=== PATIENT | male | born 1955 | race Caucasian/White ===

== ENCOUNTER → 2017-07-28 | Outpatient (CLI) | payer OTHER ==
--- NOTE | 2017-07-29 16:46 | MR ---
EXAMINATION TYPE: MR cervical spine wo con DATE OF EXAM: 07/28/2017 COMPARISON: NONE HISTORY: 61-year-old male Neck pain, Left arm numbness/tingling and weakness TECHNIQUE: Multiplanar, multisequence images of the cervical spine were acquired. Findings: No craniocervical junction abnormality, predental space widening, or prevertebral soft tissue swellin g. Moderate disc degenerative change throughout the cervical spine characterized by disc desiccation and disc space narrowing and disc osteophyte complex formation, greatest at C5-C7 levels. Hypertrophic facet and uncovertebral joint arthropathy throughout. There is degenerative grade 1 ante rolisthesis at C7-T1. Scattered ligamentum flavum thickening is also present. Of note, there is congenital spinal canal narrowing with AP canal dimension of 1.1 cm. At C2-C3, there is left greater than right facet arthropathy. No significant canal or foraminal steno sis. At C3-C4, uncovertebral joint and facet degenerative change. Changes result in mild to moderate right neuroforaminal stenosis and mild spinal canal stenosis with left paracentral disc osteophyte complex abutting and minimally indenting the ventral cord. At C4-C5, there is broad-based disc ossified complex with hypertrophic facet and uncovertebral joint degenerative change. Changes result in moderate to severe left and mild right neuroforaminal stenosis . There is also a moderate overall spinal canal stenosis with AP canal dimension of 7 mm. Abutment of both the dorsal and ventral cord with slight cord flattening. At C5-C6, there is diffuse disc osteophyte complex eccentric towards the left with uncovertebral join t and facet degenerative change and ligamentum flavum thickening. Changes result in severe bilateral neuroforaminal stenosis. There is a moderate spinal canal stenosis with a flattening of both the dors al and ventral cord. At C6/C7, similar changes are present with moderate to severe spinal canal stenosis with AP canal dim ension of 4.5 mm. There is impingement of the cord but no discrete myelopathic cord signal change. Ch anges result in moderate to severe bilateral neural foraminal stenosis. At C7-T1, hypertrophic facet arthropathy with grade 1 anterolisthesis. Mild congenital spinal canal n arrowing. Changes result in mild bilateral neuroforaminal stenosis. At T1-T2, there is a broad-based disc bulge with superimposed left paracentral protrusion. This cause s a moderate left neuroforaminal stenosis and abuts and minimally indents the ventral cord. No alex canal compromise or cord compression. No prevertebral or paravertebral soft tissue abnormality seen. IMPRESSION: 1. Moderate degenerative disc disease particularly from C5 through C7 levels. There is corresponding ligamentum flavum thickening and facet/uncovertebral joint arthropathy. 2. These changes are superimposed on a congenital spinal canal stenosis. 3. Changes result in overall moderate to severe spinal canal stenosis at C6/C7 with AP canal dimensio n of 4.5 mm. There is mild cord impingement but no myelopathic cord signal change. Moderate to severe bilateral neural foraminal stenosis. 4. Moderate spinal canal stenoses at C4-C5 and C5-C6 with abutment and slight flattening of both the dorsal and ventral cord. Again, no myelopathic cord signal change. 5. Moderate to severe left neural foraminal stenosis at C4-C5, on both sides at C5-C6, and on both si brinda at C6-C7. 6. Degenerative grade 1 anterolisthesis at C7-T1.
== END | disposition home or self-care (01) ==
LOC: RADMRIMAIN 13:06
PROVIDERS: ATTEND Physical Medicine & Rehabilitation
DX: M48.02 Spinal stenosis, cervical region (principal); M99.71 Connective tissue and disc stenosis of intervertebral foramina of cervical region; M50.122 Cervical disc disorder at C5-C6 level with radiculopathy; M43.13 Spondylolisthesis, cervicothoracic region; M46.92 Unspecified inflammatory spondylopathy, cervical region; M24.28 Disorder of ligament, vertebrae
CPT/HCPCS: 72141

== ENCOUNTER → 2017-09-06 | Outpatient (CLI) | payer OTHER ==
[2017-09-06 12:05] LABS: Basophils % (A) 1 %; Eosinophils # (A) 0.2 k/uL (0-0.7); Eosinophils % (A) 2 %; HCT 47.4 % (39.0-53.0); HGB 15.4 gm/dL (13.0-17.5); Lymphocytes # (A) 2.1 k/uL (1.0-4.8); Lymphocytes % (A) 25 %; MCH 31.6 pg (25.0-35.0); MCHC 32.5 g/dL (31.0-37.0); MCV 97.3 fL (80.0-100.0); Mean Platelet Volume 7.1; Monocytes # (A) 0.5 k/uL (0-1.0); Monocytes % (A) 6 %; Neutrophils # (A) 5.5 k/uL (1.3-7.7); Neutrophils % (A) 65 %; Platelet Count 235 k/uL (150-450); RBC 4.88 m/uL (4.30-5.90); RDW 13.2 % (11.5-15.5); WBC 8.5 k/uL (3.8-10.6)
[2017-09-06 12:14] LABS: Appearance,Urine Clear (Clear); Bilirubin,Urine Negative (Negative); Blood,Urine Negative (Negative); Color,Urine Light Yellow; Glucose,Urine (UA) Negative (Negative); Ketones,Urine Negative (Negative); Leukocyte Esterase,Urine Negative (Negative); Nitrite,Urine Negative (Negative); Protein,Urine Negative (Negative); Specific Gravity,Urine 1.004 (1.001-1.035); Urobilinogen,Urine <2.0 mg/dL (<2.0)
[2017-09-06 12:25] LABS: Anion Gap 5 mmol/L; Blood Urea Nitrogen 21 mg/dL (9-20); Calcium 9.9 mg/dL (8.4-10.2); Carbon Dioxide 34 mmol/L (22-30); Chloride 99 mmol/L (98-107); Glucose 91 mg/dL (74-99); Potassium 5.5 mmol/L (3.5-5.1); Sodium 138 mmol/L (137-145)
[2017-09-06 13:03] LABS: Partial Thromboplastin Time 23.4 sec (22.0-30.0); Prothrombin Time 9.6 sec (9.0-12.0)
--- NOTE | 2017-09-06 13:14 | XR ---
EXAMINATION TYPE: XR chest 2V DATE OF EXAM: 09/06/2017 COMPARISON: 12/06/2012 INDICATION: Presurgical evaluation TECHNIQUE: Frontal and lateral views of the chest are obtained. FINDINGS: The heart size is normal. The pulmonary vasculature is normal. The lungs are clear. IMPRESSION: 1. No acute pulmonary process.
== END | disposition home or self-care (01) ==
LOC: LABPAT 10:57
PROVIDERS: ATTEND Orthopaedic Surgery Orthopaedic Surgery of the Spine
DX: Z01.818 Encounter for other preprocedural examination (principal); Z01.812 Encounter for preprocedural laboratory examination; M48.02 Spinal stenosis, cervical region
CPT/HCPCS: 71046; 80048; 81003; 85025; 85610; 85730; 93005

== ENCOUNTER 2017-09-12 11:41 | Inpatient (IN) | payer OTHER ==
[2017-09-06 16:43] VITALS: BMI 30.1
[~2017-09-12 11:41] MED LIST: BACITRACIN 50,000 UNIT, POLYMYXIN B 500,000 UNIT in SODIUM CHLORIDE 0.9% IRRIGATIO 1,00... IRRIGATION ONE; ceFAZolin IN SWFI 2 GM/20 ML SYRINGE IVP ONE
[2017-09-12 12:38] VITALS: RESP 16
[2017-09-12] MEDS ORDERED: LIDOCAINE 1% 20 ML VIAL (10MG/ML) FOR IV START INTRADERMA ONE (12:52)
[2017-09-12] MEDS ORDERED: LACTATED RINGERS 1,000 ML IV ONE (12:54)
[2017-09-12] MEDS ORDERED: ONDANSETRON 4 MG/2 ML VIAL IVP ONE (12:54)
[2017-09-12] MEDS ORDERED: PHENYLEPHRINE-0.9% NACL SYG 1 MG/10 ML SYRINGE ONE (14:20)
[2017-09-12] MEDS ORDERED: MIDAZOLAM 2 MG/2 ML VIAL ONE (14:20)
[2017-09-12] MEDS ORDERED: ePHEDrine SULFATE/0.9% NACL/PF 50 MG/5 ML SYRINGE IV ONE (14:20)
[2017-09-12] MEDS ORDERED: ROCURONIUM BROMIDE 10 MG/ML 10 ML VIAL IV ONE (14:20)
[2017-09-12] MEDS ORDERED: SUCCINYLCHOLINE CHLORIDE 100 MG/5 ML SYR IV ONE (14:20)
[2017-09-12] MEDS ORDERED: fentaNYL (PF) 50 MCG/ML 2 ML AMP ONE (14:20)
[2017-09-12] MEDS ORDERED: LIDOCAINE 1% INJ 10MG/ML (20 ML MDV) ONE (14:20)
[2017-09-12] MEDS ORDERED: PROPOFOL 10 MG/ML 20 ML VIAL IV ONE (14:20)
[2017-09-12] MEDS ORDERED: HYDROmorphone (PF) 1 MG/ML ONE (14:20)
[2017-09-12] MEDS ORDERED: GELATIN SPONGE,ABSORB (LARGE) 1 EACH SPONGE MISCELLANE ONE (14:56)
[2017-09-12] MEDS ORDERED: THROMBIN (BOVINE) 5,000 UNIT VIAL TOPICAL ONE (14:56)
[2017-09-12] MEDS ORDERED: BUPIVACAINE (PF) 0.25% 30 ML VIAL SQ ONE (14:57)
--- NOTE | 2017-09-12 16:51 | XR ---
EXAMINATION TYPE: XR cervical spine 1V DATE OF EXAM: 09/12/2017 COMPARISON: Cervical spine x-ray earlier. HISTORY: Neck surgery. TECHNIQUE: Single crosstable lateral view of cervical spine is obtained intraoperatively. FINDINGS: . There is now anterior fusion plate from C4 through C7 level. There is artificial disc mat erial C4-C5 and C5-C6 level. Soft tissue obscures visualization of the C6-C7 level as well as C6 and C7 screws. Alignment is satisfactory and stable. Endotracheal tube is redemonstrated. IMPRESSION: Postsurgical changes as above.
[2017-09-12] MEDS ORDERED: MAGNESIUM HYDROXIDE 2,400 MG/10 ML CUP PO PRN (16:55)
[2017-09-12] MEDS ORDERED: HYDROmorphone 2 MG/ML 1 ML SYRINGE IVP PRN (16:55)
[2017-09-12] MEDS ORDERED: HYDROcodone/APAP 5-325MG 1 EACH TAB PO PRN (16:56)
[2017-09-12] MEDS ORDERED: FAMOTIDINE 20 MG TAB PO PRN (16:59)
[2017-09-12] MEDS ORDERED: SODIUM CHLORIDE 0.9% 1,000 ML IV SCH (17:00)
--- NOTE | 2017-09-12 17:04 | P.OP ---
Date of Procedure: 09/12/17 Preoperative Diagnosis: Severe cervical stenosis C4 5 C5 6 C6 7, degenerative disc disease C4 5 C5 6 C6 7, upper extremity radiculopathy, Postoperative Diagnosis: Same Anesthesia: GETA Pathology: none sent Condition: stable Disposition: PACU Description of Procedure: BRIEF OPERATIVE NOTE Preoperative Diagnosis: Severe cervical stenosis C4 5 C5 6 C6 7, herniated disc C4 5 C5 6 C6 7, degenerative disc disease C4 5 C5 6 C6 7, upper extremity neuropathy Postoperative Diagnosis: Same Procedure: Anterior cervical decompression with discectomy and fusion C4 5 C5 6 C6 7 Placement of interbody graft C4 5 C5 6 C6 7 Application of anterior cervical plate C4 5 6 and 7 Surgeon: Dr. Kelly Geospatial Extractor Analysis: Janusz Horner is present throughout the entire the case persistence during positioning, dissection, exposure, visualization, and all crucial elements of the case as well as closure. Anesthesia: General anesthesia per Dr. Griffin Estimated blood loss: Approximately 50 mL Complications: None apparent Components implanted: K2M Fenton anterior cervical plate system with screws and Vikos allograft bone graft and 1 mL of DBX bone putty Disposition: To recovery room in good stable condition. OPERATIVE INDICATIONS The patient has had long-standing issues in their neck and upper extremities. He was found to have severe cervical stenosis at C4 5 C5 6 and C6 7 with disc herniation and these findings correlated well with his neck and upper extremity pain and radiculopathy. The patient has been through conservative treatment. He is not having any significant benefit despite aggressive conservative treatment We discussed various treatment options including surgery, and the patient wishes to proceed with surgery We discussed the risk, patient's alternatives and benefits of surgery including but not limited to, risk of bleeding risk of infection, risk of need for further surgery, risk of decreased , loss of motion, muscle function, malunion nonunion, hardware failure, nerve damage, paralysis, heart attack, and . OPERATIVE SUMMARY After discussing all the risks, patient alternatives and benefits at length, the patient elected to proceed with surgical intervention, signed informed consent, and presented for their procedure. The patient was seen and examined in the preoperative holding area and the surgical site was marked. The patient was given antibiotics and brought to the operating room. The patient was positioned on the operating room table in a supine position being careful to pad any bony prominences and pressure points. The patient was sedated and intubated by anesthesia in standard fashion. Once the airway and C- spine were stabilized the patient's arms were padded and tucked at her side, with her shoulders gently taped. The head was placed in a donut pad with the neck in good neutral alignment and position. We were careful to maintain the patient's cervical spine and good neutral alignment and position throughout. The patient was prepped and draped in a normal standard fashion. An appropriate timeout and keystone protocol performed. We were able to proceed with the surgery. The local wound area was infiltrated with local anesthetic. An incision was made transversely approximately 2-1/2 cm over the appropriate levels at C5 6. Dissection was taken down subcutaneously to the level of the platysma which was split in line with its fibers. Dissection was taken with a carotid approach, with the trachea and esophagus medial and the carotid sheath laterally. We dissected down to the anterior surface of the vertebral bodies at C4 5 C5 6 and C6 7. Intraoperative x-ray was taken which showed a marker at the appropriate level of C4 5. With the appropriate level positively confirmed , we were able to proceed with discectomy at the appropriate levels. There were large osteophytes particular at C5 6 and C6 7 which were taken down. All of the operative levels were exposed appropriately. The patient had all their twitches back, and there was no evidence of recurrent laryngeal issue. The wound was copiously irrigated and suctioned dry as had been done periodically throughout the case. At the appropriate level/levels, starting at C6 7 and then doing C5 6 and then C4 5, I established an annulotomy with an 11 blade scalpel. A discectomy was performed with a combination of pituitary rongeurs, curettes, a high-speed bur, and Kerrison rongeurs. The posterior longitudinal ligament was taken down as were any posterior osteophytes. Note was made of severe central and bilateral foraminal stenosis at each level which was remedied with the decompression and discectomy. This gave good central and bilateral foraminal decompression. There is no evidence of any dural tear or leak. The endplates were prepared with a high-speed bur. With the endplates in good parallel position, I was able to size for the appropriate size interbody graft. The wound was irrigated and suctioned dry the graft was prepared and malleted into position. It had good alignment and position with the anterior surface flush with the anterior surface of the vertebral bodies. This was done similarly the appropriate levels at C4 5 C5 6 and C6 7. With the grafts intact, I was able to measure and contour and appropriate sized plate. The plate was positioned at the midline over the appropriate levels. Screw holes were established with a hand drill and drill guide. Screws were placed in good alignment and position with excellent bony purchase. They were seated under the locking device. The construct was checked and found to be stable. Intraoperative x-ray was taken which showed good alignment and position of the implants at the appropriate levels from C4 to C7. There was no evidence of any dural tear or leak. Good hemostasis was maintained. The wound was copiously irrigated and suctioned dry as had been done periodically throughout the case. The platysma was closed with absorbable suture. The subcutaneous tissue was closed. The subcuticular tissue was closed with absorbable suture. The wound was cleaned and dried and dressed appropriately. A soft cervical collar was placed appropriately. The patient was woken up by anesthesia, extubated, transferred back gently to their hospital bed and brought to the recovery room in good stable condition. The patient will be admitted to the hospital for appropriate postoperative care , medical management and monitoring. We will continue to follow them closely about the postoperative course.
[2017-09-12] MEDS: HYDROmorphone 2 MG/ML 1 ML SYRINGE IVP PRN ×2 (18:11→22:44)
[2017-09-12 18:35] VITALS: TEMP 98.2
[2017-09-12] MEDS ORDERED: ALPRAZolam 0.25 MG TAB PO STA (20:35)
[2017-09-12] MEDS ORDERED: ALPRAZolam 0.25 MG TAB PO SCH (22:00)
[2017-09-12] MEDS: CLINDAMYCIN 900 MG in DEXTROSE 5% IN WATER 50 ML IVPB SCH ×2 (23:53)
[2017-09-13 02:38] VITALS: BP 137/90; PULSE 93
[2017-09-13] MEDS: HYDROmorphone 2 MG/ML 1 ML SYRINGE IVP PRN ×2 (02:47→06:58)
[2017-09-13] MEDS: ALPRAZolam 0.5 MG TAB PO PRN ×2 (05:22→12:13)
[2017-09-13] MEDS: CLINDAMYCIN 900 MG in DEXTROSE 5% IN WATER 50 ML IVPB SCH ×2 (07:12)
[2017-09-13] MEDS: DIAZEPAM 5 MG TAB PO PRN ×2 (07:12→12:23)
[2017-09-13] MEDS: HYDROcodone/APAP 7.5-325MG 1 EACH TAB PO PRN ×2 (08:53→14:02)
[2017-09-13] MEDS: BENZOCAINE/MENTHOL LOZENG 1 EACH LOZENGE MUCOUS MEM PRN ×2 (08:54→12:24)
[2017-09-13] MEDS ORDERED: SENNOSIDES-DOCUSATE SODIUM 1 EACH TAB PO SCH (09:00)
[2017-09-13] MEDS ORDERED: ALPRAZolam 0.5 MG TAB PO SCH (09:00)
--- NOTE | 2017-09-13 10:26 | P.DS ---
Providers Date of admission: 09/12/17 11:41 Attending physician: Jayda Kelly Primary care physician: Gray Wadsworth-Rittman Hospital Course: The patient presented on the day of admission as per his operative note. He underwent anterior cervical discectomy and fusion at C4 5 C5 6 and C6 7 for his severe cervical stenosis with upper extremity radiculopathy and degenerative disc disease. His neck is giving him pain this morning and he is having some difficulty swallowing more than applesauce thus far. He has significant spasm at the bases neck posteriorly. He has not yet been ambulatory like to try to get up later today. He has some issues with history of anxiety and I think that he is having some spasm with this. Physical Exam The incision site is clean dry and intact. There is no erythema no drainage. There is no purulence no evidence of infection. His neck has some mild swelling but there is no tense swelling. There is no erythema there is no drainage Abdomen soft and nontender. Chest has good excursion with deep inspiration and expiration. The patient has active and passive range of motion intact at the upper and lower extremities. There is no acute change in neurologic status. He has good motion in his upper extremities. He has significant spasm of the bases neck. Hospital Course Postoperative day #1 status post anterior cervical discectomy and fusion at C4 5 C5 6 and C6 7 for his severe cervical stenosis with upper extremity radiculopathy and degenerative disc disease The patient has been making some progress postoperatively. He has had limited mobility thus far we will see how he does with increasing is mobile position this morning. He has some mild swelling his neck but that did not seem to be any tension he is not having shortness of breath. I think his anxiety overall contributes to some of his spasm and tension and hopefully this will resolve as he continues to be more comfortable with his medications and pain control. It is okay for him to increase his mobilization and ambulation. They have completed the prophylactic antibiotics without any signs or symptoms of infection. The patient has been able to advance their diet somewhat but he is still having some difficulty with more solid foods and we'll see if he is able to tolerate further advancement of his diet today. The pain was initially controlled with IV medications and is now converting appropriately with oral medications. The patient has progressed appropriately thus far but he still has to make further progress before he is able to be at home. If he is able tolerate further diet and his pain is better controlled then I think they are in good stable condition for discharge today. They will be sent home with appropriate prescriptions. If he is unable to tolerate further diet or ambulation with appropriate pain control then we will keep him for further treatment overnight. I answered their questions to the best of my ability in a language that they can understand and they are agreeable with the plan. They will follow up as directed in approximately 2 weeks or sooner if he is having any problems if he is able to be discharged. Patient Condition at Discharge: Fair Plan - Discharge Summary New Discharge Prescriptions: New Diazepam [Valium] 5 mg PO TID PRN #90 tab PRN Reason: Spasms HYDROcodone/APAP 7.5-325MG [Truro 7.5-325] 1 tab PO Q6HR PRN #90 tab PRN Reason: Severe Pain No Action Multivitamins, Thera [Multivitamin (formulary)] 1 tab PO DAILY Cyanocobalamin (Vitamin B-12) [Vitamin B12] 2,500 mcg PO DAILY Cholecalciferol [Vitamin D3] 400 unit PO DAILY Hydrocodone/Acetaminophen [Truro 5-325] 0.5 tab PO 1430,1900 ALPRAZolam [Xanax] 0.25 mg PO TID Tamsulosin [Flomax] 0.8 mg PO DAILY@1230 Mission-3 Fatty Acids/Fish Oil [Fish Oil 1,000 mg Softgel] 1 cap PO DAILY Vitamin B Complex 1 cap PO DAILY Ibuprofen 400 mg PO BID Ranitidine HCl [Zantac] 150 mg PO BID PRN PRN Reason: Heartburn Discharge Medication List ALPRAZolam [Xanax] 0.25 mg PO TID 09/06/17 [History] Cholecalciferol [Vitamin D3] 400 unit PO DAILY 09/06/17 [History] Cyanocobalamin (Vitamin B-12) [Vitamin B12] 2,500 mcg PO DAILY 09/06/17 [History ] Hydrocodone/Acetaminophen [Truro 5-325] 0.5 tab PO 1430,1900 09/06/17 [History] Ibuprofen 400 mg PO BID 09/06/17 [History] Multivitamins, Thera [Multivitamin (formulary)] 1 tab PO DAILY 09/06/17 [History ] Mission-3 Fatty Acids/Fish Oil [Fish Oil 1,000 mg Softgel] 1 cap PO DAILY [History] Ranitidine HCl [Zantac] 150 mg PO BID PRN 09/06/17 [History] Tamsulosin [Flomax] 0.8 mg PO DAILY@1230 09/06/17 [History] Vitamin B Complex 1 cap PO DAILY 09/06/17 [History] Diazepam [Valium] 5 mg PO TID PRN #90 tab 09/13/17 [Rx] HYDROcodone/APAP 7.5-325MG [Truro 7.5-325] 1 tab PO Q6HR PRN #90 tab 09/13/17 [ Rx] Follow up Appointment(s)/Referral(s): Jayda Kelly DO [Doctor of Osteopathic Medicine] - 2 Weeks Activity/Diet/Wound Care/Special Instructions: Keep site clean. May shower with waterproof Tegaderm intact but do not soak in a tub. On Sunday May remove dressings but leave Steri-Strips intact and allow them to fray off on their own. Avoid heavy or rigorous activity. May ambulate to tolerance. No repetitive bending twisting or lifting. No overhead work. Discharge Disposition: HOME SELF-CARE
[2017-09-13] MEDS ORDERED: CYANOCOBALAMIN 500 MCG TAB PO SCH (12:00)
[2017-09-13] MEDS ORDERED: B COMPLEX-VIT C-VIT E-ZINC 1 EACH TAB PO SCH (12:00)
[2017-09-13] MEDS ORDERED: MULTIVITAMINS, THERA 1 EACH TAB PO SCH (12:00)
[2017-09-13] MEDS ORDERED: CHOLECALCIFEROL 400 UNIT TAB PO SCH (12:00)
[2017-09-13] MEDS ORDERED: TAMSULOSIN 0.4 MG CAP.ER.24H PO SCH (12:30)
--- NOTE | 2017-09-13 13:04 | XR ---
EXAMINATION TYPE: XR cervical spine 1V DATE OF EXAM: 09/12/2017 COMPARISON: MRI cervical spine July 28, 2017. HISTORY: Neck pain. TECHNIQUE: Single portable crosstable lateral view of cervical spine is obtained intraoperatively. FINDINGS: Exam is for surgical planning and not for diagnostic purposes. Needle pointer is localized at the C4-C5 disc space level. Incidental note is made of moderate spurring and disc space narrowing C5-C6 level. IMPRESSION: As above.
== END 2017-09-13 14:20 | disposition home or self-care (01) | DRG 473 ==
LOC: 2ORMAIN 11:41 → 3SUR 17:00
PROVIDERS: ADMIT Orthopaedic Surgery Orthopaedic Surgery of the Spine; ATTEND Orthopaedic Surgery Orthopaedic Surgery of the Spine
PROC: 0RB30ZZ Excision of Cervical Vertebral Disc, Open Approach (ICD-10-PCS; 2017-09-12)
PROC: 0RG20A0 Fusion of 2 or more Cervical Vertebral Joints with Interbody Fusion Device, Anterior Approach, Anterior Column, Open Approach (ICD-10-PCS; principal; 2017-09-12 13:40)
DX: M48.02 Spinal stenosis, cervical region (principal); G62.9 Polyneuropathy, unspecified; M50.121 Cervical disc disorder at C4-C5 level with radiculopathy; R13.10 Dysphagia, unspecified; F41.9 Anxiety disorder, unspecified; K21.9 Gastro-esophageal reflux disease without esophagitis; N52.9 Male erectile dysfunction, unspecified; G47.00 Insomnia, unspecified; I10 Essential (primary) hypertension; F17.210 Nicotine dependence, cigarettes, uncomplicated; Z79.899 Other long term (current) drug therapy; Z88.0 Allergy status to penicillin; Z88.8 Allergy status to other drugs, medicaments and biological substances; Z79.52 Long term (current) use of systemic steroids; Z79.891 Long term (current) use of opiate analgesic; Z96.651 Presence of right artificial knee joint; Z82.49 Family history of ischemic heart disease and other diseases of the circulatory system
CPT/HCPCS: 72020; 86850; 86900; 86901

== ENCOUNTER → 2018-05-13 | Outpatient (CLI) | payer OTHER ==
--- NOTE | 2018-05-13 16:14 | MR ---
EXAMINATION TYPE: MR lumbar spine wo con DATE OF EXAM: 05/13/2018 COMPARISON: NONE HISTORY: Low back/rt hip pain x 2 years per patient. Low back pain intervertebral disc degeneration, and radiculopathy per order. TECHNIQUE: Multiplanar, multisequence imaging of the lumbar spine is performed without IV contrast. FINDINGS: Sagittal images of the lumbar spine show vertebral body heights to appear satisfactory. The re is grade 1 anterolisthesis measured 5 mm on sagittal images of L5 on S1. Bilateral pars defect L5 level are seen Multilevel disc desiccation is present there is advanced disc space narrowing affectin g disc phenomenon at L5-S1 level. There is moderate disc space narrowing L4-L5 level. There is mild d isc space narrowing L3-L4 level. Posterior disc herniations are seen L3-L4 and L4-L5 levels on sagitt al images. The conus medullaris is normal in position and signal ending at labeled T12-L1 disc space . Heterogeneous endplate changes are seen in the lower lumbar spine with Modic type I degenerative ch lucille present. Axial images beginning at labeled L1-L2 level which shows tiny central disc protrusion mildly effacin g anterior thecal sac and bilateral neural foramina are patent on axial image 36. Axial images at L2-L3 level are felt within normal limits. Axial images at the L3-L4 level show mild/moderate broad-based posterior disc protrusion mildly effac ing anterior thecal sac, there is mild bilateral anterior inferior neural foraminal narrowing seen. Axial images at the L4-L5 level show right paracentral broad-based disc protrusion effacing anteroapi dejan sac on axial image 18 and causing [id number] right with mild left-sided anterior inferior n eural foraminal narrowing. Mild facet arthropathy bilaterally at this level is present. Axial images at L5-S1 level show spondylolisthesis with moderate to advanced facet degenerative mahoney es bilaterally. There is increased prominence of epidural fat at this level noted. There is severe ri ght-sided neural foraminal narrowing and moderate left-sided neural foraminal narrowing encroachment on the right L5 nerve is felt present sagittal image 12. Axial images at S1-S2 level show moderate facet degenerative changes bilaterally. Spinal canal is pre served. Bilateral neural foramina are patent on axial image 5. Impression: Bilateral pars defects L5 level with grade 1 anterolisthesis of L5 on S1. Multilevel dege nerative changes most prominent in the lower lumbar levels. Encroachment on the labeled right L5 nerv e is felt present. Further details are noted as discussed above.
== END | disposition home or self-care (01) ==
LOC: RADMRIMAIN 14:36
PROVIDERS: ATTEND Physical Medicine & Rehabilitation
DX: M48.061 Spinal stenosis, lumbar region without neurogenic claudication (principal); M99.73 Connective tissue and disc stenosis of intervertebral foramina of lumbar region; M51.16 Intervertebral disc disorders with radiculopathy, lumbar region; M47.26 Other spondylosis with radiculopathy, lumbar region; M43.17 Spondylolisthesis, lumbosacral region; M50.121 Cervical disc disorder at C4-C5 level with radiculopathy; M47.812 Spondylosis without myelopathy or radiculopathy, cervical region
CPT/HCPCS: 72148

== ENCOUNTER → 2018-10-29 | Outpatient (CLI) | payer OTHER ==
[2018-10-29 16:43] LABS: Basophils % (A) 1 %; Eosinophils # (A) 0.2 k/uL (0-0.7); Eosinophils % (A) 4 %; HCT 43.2 % (39.0-53.0); HGB 14.8 gm/dL (13.0-17.5); Lymphocytes # (A) 1.9 k/uL (1.0-4.8); Lymphocytes % (A) 31 %; MCH 32.9 pg (25.0-35.0); MCHC 34.2 g/dL (31.0-37.0); MCV 96.4 fL (80.0-100.0); Mean Platelet Volume 6.8; Monocytes # (A) 0.4 k/uL (0-1.0); Monocytes % (A) 7 %; Neutrophils # (A) 3.6 k/uL (1.3-7.7); Neutrophils % (A) 57 %; Platelet Count 252 k/uL (150-450); RBC 4.49 m/uL (4.30-5.90); RDW 13.2 % (11.5-15.5); WBC 6.2 k/uL (3.8-10.6)
[2018-10-29 16:44] LABS: Appearance,Urine Clear (Clear); Bilirubin,Urine Negative (Negative); Blood,Urine Negative (Negative); Color,Urine Light Yellow; Glucose,Urine (UA) Negative (Negative); Ketones,Urine Negative (Negative); Leukocyte Esterase,Urine Negative (Negative); Nitrite,Urine Negative (Negative); Protein,Urine Trace (Negative); Specific Gravity,Urine 1.007 (1.001-1.035); Urobilinogen,Urine <2.0 mg/dL (<2.0)
[2018-10-29 16:48] LABS: Partial Thromboplastin Time 26.1 sec (22.0-30.0); Prothrombin Time 10.4 sec (9.0-12.0)
[2018-10-29 16:51] LABS: Calcium 9.4 mg/dL (8.4-10.2); Potassium 4.4 mmol/L (3.5-5.1)
--- NOTE | 2018-10-29 17:54 | XR ---
EXAMINATION TYPE: XR chest 2V DATE OF EXAM: 10/29/2018 COMPARISON: September 06, 2017 HISTORY: Preop back surgery TECHNIQUE: Frontal and lateral views of the chest are obtained. FINDINGS: Heart and mediastinum are within normal limits. Lungs are clear. Costophrenic angles are c lear. There is spurring in the thoracic spine. IMPRESSION: No active cardiopulmonary disease. No change.
== END | disposition home or self-care (01) ==
LOC: LABPAT 15:51
PROVIDERS: ATTEND Orthopaedic Surgery Orthopaedic Surgery of the Spine
DX: Z01.818 Encounter for other preprocedural examination (principal); Z01.812 Encounter for preprocedural laboratory examination; M48.061 Spinal stenosis, lumbar region without neurogenic claudication
CPT/HCPCS: 36415; 71046; 80048; 81003; 85025; 85610; 85730; 87070

== ENCOUNTER 2018-11-06 07:34 | Inpatient (IN) | payer OTHER ==
[~2018-11-06 07:34] MED LIST changes: +DEXAMETHASONE SOD PHOSPHATE 10 MG/ML 1 ML VIAL IV ONE; +LACTATED RINGERS 1,000 ML IV SCH; +MIDAZOLAM 2 MG/2 ML VIAL IV PRN; +ONDANSETRON 4 MG/2 ML VIAL IVP ONE; +SCOPOLAMINE 1.5MG/72HR PATCH TRANSDERM ONE
[2018-11-06] MEDS ORDERED: LIDOCAINE 1% 20 ML VIAL (10MG/ML) FOR IV START INTRADERMA ONE (08:27)
[2018-11-06] MEDS ORDERED: SODIUM CHLORIDE 0.9% IRRIG 1,000 ML BTL IRRIGATION ONE (09:38)
[2018-11-06] MEDS ORDERED: SUCCINYLCHOLINE CHLORIDE 100 MG/5 ML SYR IV ONE (09:38)
[2018-11-06] MEDS ORDERED: ROCURONIUM BROMIDE 10 MG/ML 10 ML VIAL IV ONE (09:38)
[2018-11-06] MEDS ORDERED: MIDAZOLAM 2 MG/2 ML VIAL ONE (09:38)
[2018-11-06] MEDS ORDERED: GLYCOPYRROLATE 0.2 MG/ML 2 ML VIAL ONE (09:38)
[2018-11-06] MEDS ORDERED: ePHEDrine SULFATE/0.9% NACL/PF 50 MG/5 ML SYRINGE IV ONE (09:38)
[2018-11-06] MEDS ORDERED: NEOSTIGMINE 1 MG/ML 10 ML VIAL ONE (09:38)
[2018-11-06] MEDS ORDERED: HEPARIN SODIUM,PORCINE 10,000 UNIT/ML 1 ML VIAL ONE (09:38)
[2018-11-06] MEDS ORDERED: PROPOFOL 10 MG/ML 20 ML VIAL IV ONE (09:38)
[2018-11-06] MEDS ORDERED: PHENYLEPHRINE-0.9% NACL SYG 1 MG/10 ML SYRINGE ONE (09:38)
[2018-11-06] MEDS ORDERED: fentaNYL (PF) 50 MCG/ML 2 ML AMP ONE (09:38)
[2018-11-06] MEDS ORDERED: LIDOCAINE 1% INJ 10MG/ML (20 ML MDV) ONE (09:38)
[2018-11-06] MEDS ORDERED: LIDOCAINE 0.5%-EPI 1:200,000 50 ML VIAL SQ ONE (10:28)
[2018-11-06] MEDS ORDERED: THROMBIN (BOVINE) 5,000 UNIT VIAL MISCELLANE ONE (10:30)
[2018-11-06] MEDS ORDERED: GELATIN SPONGE,ABSORB (LARGE) 1 EACH SPONGE MISCELLANE ONE (10:30)
[2018-11-06] MEDS ORDERED: LACTATED RINGERS 1,000 ML IV ONE ×4 (11:04→14:06)
[2018-11-06] MEDS ORDERED: HYDROcodone/APAP 5-325MG 1 EACH TAB PO PRN (14:25)
[2018-11-06] MEDS ORDERED: BENZOCAINE/MENTHOL LOZENG 1 EACH LOZENGE MUCOUS MEM PRN (14:25)
[2018-11-06] MEDS ORDERED: ONDANSETRON 4 MG/2 ML VIAL IVP PRN (14:25)
[2018-11-06] MEDS ORDERED: HYDROmorphone 0.5 MG/0.5 ML SYRINGE IVP PRN (14:25)
[2018-11-06] MEDS ORDERED: FAMOTIDINE 20 MG TAB PO PRN (14:28)
--- NOTE | 2018-11-06 14:29 | FL ---
EXAMINATION TYPE: FL guidance operating room, XR lumbar spine 2 or 3V DATE OF EXAM: 11/06/2018 CLINICAL HISTORY: Low back pain. TECHNIQUE: Fluoroscopy. 2 intraoperative views lumbar spine. COMPARISON: Lumbar spine MRI August 12, 2018. FINDINGS: Fluoroscopic guidance was provided during minimally invasive low back surgical procedure p erformed by Dr. Kelly. A total of 3 minutes 53 seconds of fluoroscopic time was utilized during the procedure and 6 spot intraoperative images are acquired. Intraoperative images obtained show placement of interpedicular rods and screw suspected L4-S1 levels with metallic disc material suspected L4-L5 level. IMPRESSION: As Above.
--- NOTE | 2018-11-06 14:33 | P.OP ---
Date of Procedure: 11/06/18 Preoperative Diagnosis: Spondylolisthesis L3 4 L4 5, severe spinal stenosis L3 4 L4 5, degenerative disc disease, bilateral lower extremities not a, lower extremity weakness, low back pain Postoperative Diagnosis: Same Anesthesia: GETA Pathology: none sent Condition: stable Disposition: PACU Description of Procedure: DESCRIPTION OF PROCEDURE(S): BRIEF OPERATIVE NOTE Preoperative Diagnosis: Spondylolisthesis L3 4 L4 5, severe spinal stenosis L3 4 L4 5, degenerative disc disease, bilateral lower extremities not a, lower extremity weakness, low back pain Postoperative Diagnosis:Spondylolisthesis L3 4 L4 5, severe spinal stenosis L3 4 L4 5, degenerative disc disease, bilateral lower extremities not a, lower extremity weakness, low back pain Procedure: Laminectomy and decompression L3 4 L4 5 Minimally invasive Posterior lateral decompression and facet fusion L3 4 L4 5 Minimally invasive Transforaminal lumbar interbody fusion for a 360 fusion L3 4 L4 5 Discectomy for decompression L3 4 L4 5 Placement of interbody graft L3 4 L4 5 Local autogenous bone grafting Harvesting of bone marrow aspirate via the pedicle at L3 Use of Cell Saver Use of bone graft extenders Surgeon: Dr. Kelly Director Business Integration: Janusz Horner is present throughout the entire the case persistence during positioning, dissection, exposure, visualization, and all crucial elements of the case as well as closure. Anesthesia: General anesthesia per Dr. Fernández Estimated blood loss: Approximately 250 mL with some given back through Cell Saver Complications: None apparent Components implanted: K2M minimally invasive have wrist pedicle screw system with 6 screws measuring 6.5 x 50 mm with 2 rods one [place] interbody titanium cage in one of the fascia leak interbody cage with 1 large osteoamp sponge and DBX bone putty to supplemental local autogenous and bone marrow aspirate graft Disposition: To recovery room in good stable condition. OPERATIVE INDICATIONS The patient has had long-standing issues in their lower back and lower extremities. He is found have severe spinal stenosis with spondylolisthesis L3 4 L4 5 which probably well with his low back and lower extremity radiculopathy. The patient has been through conservative treatment. He is not having any prolonged benefit despite aggressive conservative treatment. We discussed various treatment options including surgery, and the patient wishes to proceed with surgery We discussed the risk, patient's alternatives and benefits of surgery including but not limited to, risk of bleeding risk of infection, risk of need for further surgery, risk of decreased, loss of motion, muscle function , malunion nonunion, hardware failure, nerve damage, paralysis, heart attack, blindness and . OPERATIVE SUMMARY After discussing all the risks, patient alternatives and benefits at length, the patient elected to proceed with surgical intervention, signed informed consent, and presented for their procedure. The patient was seen and examined in the preoperative holding area and the surgical site was marked. The patient was given antibiotics and brought to the operating room. The patient was sedated and intubated by anesthesia in standard fashion. The patient was positioned on to the operating room table in a prone position on the appropriate frame which was well-padded and well molded. We were careful to pad any bony prominences and pressure points. We were careful to maintain the patient's cervical spine and good neutral alignment and position throughout. The patient was prepped and draped in a normal standard fashion. An appropriate timeout and keystone protocol performed. We were able to proceed with the surgery. The local wound area was infiltrated with local anesthetic. I was able utilize C-arm guidance to establish appropriate position over the pedicles bilaterally at the appropriate levels at L3 4 and 5 bilaterally. With the appropriate levels confirmed was able to make small stab incisions over the appropriate pedicle sites bilaterally. Utilizing C-arm in his house able to establish a Jamshidi needle over the lateral aspect of the pedicle and advanced the trocar into the pedicle being careful not to breech superiorly inferiorly medially or laterally. Position was confirmed regularly with AP and lateral images on C-arm. I was able to establish the trocar into the pedicle appropriately into the posterior aspect of the vertebral body bilaterally at the appropriate levels. His bone was significantly sclerotic and is making quite hard and this made inserting the pedicle finder quite difficult the we were able to get good and position at each of the pedicles at L3 4 and 5 bilaterally. This was done at each of the pedicle positions and each of the vertebrae. I was able place the guidewire into the trocar and into the vertebral body appropriately under C-arm guidance. Dissection was taken down over the wire to the appropriate starting position for the screw placed. The appropriate length screw was chosen, threaded over the guidewire and screwed appropriately into the pedicle and vertebral body under C-arm guidance in excellent alignment and position with good bony purchase. This is done at each of the screw sites at the appropriate levels at L3 4 and 5. With the screws intact I extended the incision to connect the screw hole sites on the most symptomatic side on the right. I dissected down to establish access over the pars and lamina to the base of the spinous process. I was able to expose the facet joint. The capsule the facet was taken down and showed some facet arthrosis at the joint. I was able to use a combination of curettes and Kerrison rongeurs and a high-speed drill to take down the facet joint and do a facetectomy. Partial laminectomy was also performed. I was able get excellent foraminal decompression and central decompression with undermining across midline to perform a laminectomy centrally and contralaterally. As able get good central decompression. The ligamentum flavum was taken down to further decompress centrally and at bilateral neural foramen. I was able to expose the disc space and visualize the traversing nerve root. Note was made of some disc protrusion at the level causing further compression of the nerve root. I was able to establish a annulotomy at the appropriate level protecting soft tissue and neural structures. Note was made of some disc desiccation at the disc. I performed a complete discectomy with accommodation of curettes and rasps and scrapers. I was able get good endplate preparation at the disc space. I sized for the appropriate size interbody spacer protecting the soft tissue and neural structures. The wound was copiously irrigated and suctioned dry. There is no evidence of any dural tear or leak. I was able to pack the disc space with local autogenous bone graft as well as a small amount of bone graft which was also placed into the interbody cage itself. Protecting the soft tissue structures and neural structures I was able place the interbody cage in good alignment and good position with good fit and fill at the interbody space. His issues was confirmed with C-arm guidance. Good hemostasis maintained. There is no evidence of any dural tear or leak. The wound was irrigated and suctioned dry. This was done at L3 4 and L4 5 With the hardware intact, intraoperative C-arm imaging was again taken which showed good alignment and position of the hardware at the appropriate levels at L3 4 and 5. We were then able to measure, contour and place the rods and appropriate hardware bilaterally. I was able to place capcrews, tighten them down, and torque them with the torque screwdriver appropriately. With this intact I was able to place the local autogenous bone graft with additional bone graft enhancer as necessary into the posterior lateral gutters over the decorticated transverse processes and facet joints. The remainder of the bone graft was placed over the facet joint on the contralateral side after taking down the facet joint capsule. With the bone graft intact, a stable construct, and good decompression at the appropriate levels, we were able to proceed with closure. Good hemostasis was maintained. There is no evidence of dural tear or leak. The fascia was closed for a watertight closure. he subcuticular tissue was closed with absorbable suture. The wound was cleaned and dried and dressed with the appropriate dressing. The drapes were broken down. The patient was gently rolled back onto their hospital bed being careful to maintain their cervical spine and good neutral alignment and position. They were woken up by anesthesia, extubated, and brought to the recovery room in good stable condition. The patient will be admitted to the hospital for appropriate postoperative care , medical management and monitoring. We will continue to follow them closely about the postoperative course.
[2018-11-06] MEDS: HYDROmorphone 0.5 MG/0.5 ML SYRINGE IVP PRN ×4 (14:40→15:08)
[2018-11-06 14:48] VITALS: RESP 16
[2018-11-06] MEDS ORDERED: LABETALOL 5 MG/ML VIAL MDV IVP ONE (14:48)
[2018-11-06] MEDS ORDERED: diphenhydrAMINE 50 MG/ML 1 ML VIAL IVP ONE (15:00)
[2018-11-06] MEDS: MEPERIDINE 50 MG/ML SYRINGE IVP ONE ×2 (15:14→15:24)
[2018-11-06] MEDS: HYDROmorphone 1 MG/ML 1 ML SYRINGE IVP PRN ×2 (16:29→22:17)
[2018-11-06] MEDS: SODIUM CHLORIDE 0.9% 1,000 ML IV SCH (18:45)
[2018-11-06] MEDS: ceFAZolin IN SWFI 2 GM/20 ML SYRINGE IVP SCH (18:46)
[2018-11-06] MEDS: METOPROLOL TARTRATE 50 MG TAB PO SCH ×2 (18:46→21:03)
[2018-11-06] MEDS: ALPRAZolam 0.25 MG TAB PO PRN (19:58)
[2018-11-06] MEDS: HYDROcodone/APAP 5-325MG 1 EACH TAB PO PRN (21:02)
[2018-11-06 21:52] VITALS: BMI 29.8
--- NOTE | 2018-11-07 01:08 | CONS ---
CONSULTATION DATE OF CONSULTATION: November 06, 2018. REASON FOR CONSULTATION: Medical management requested by Dr. Kelly. CONSULTATION: This 62-year-old patient of Dr. Rasmussen who has undergone lumbar surgery. Postprocedure, pain is present in the lumbar spine. The patient is lying in bed. No nausea, vomiting, did tolerate a small supper. Chronic stable medical conditions include GERD, osteoarthritis, BPH, anxiety. Denies any cardiac history. REVIEW OF SYSTEMS: CONSTITUTIONAL: None. HEENT: None. RESPIRATORY: None. CARDIOVASCULAR: None. GASTROINTESTINAL: Heartburn. GENITOURINARY: None. MUSCULOSKELETAL: Arthritic pain in different joints in the lower back. DERMATOLOGICAL, HEMATOLOGICAL and LYMPHATICS: None. PSYCHIATRY: Anxiety. NEUROLOGICAL: None. PAST MEDICAL HISTORY: GERD, osteoarthritis, BPH, eczema. PAST SURGICAL HISTORY: Hernia repair, joint replacement, tonsillectomy, cervical fusion, C4 to through C7, right knee replacement, benign cyst removed from saliva gland. PSYCH HISTORY: Anxiety. SOCIAL HISTORY: Smoking a pack a day for close to 45 years, marijuana occasionally. Son lives with him. 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 FAMILY HISTORY: Reviewed noncontributory to presentation. HOME MEDICATIONS: 1. Vitamin B complex 1 capsule p.o. daily. 2. Flomax 0.8 mg p.o. daily. 3. Zantac 150 mg p.o. b.i.d. p.r.n. 4. Fish oil 1 capsule p.o. daily. 5. Multivitamin 1 tablet p.o. daily. 6. Ibuprofen 200 mg b.i.d. 7. [place] 5 p.r.n. 8. Vitamin B12 2500 mcg p.o. daily. 9. Vitamin D3 400 units p.o. daily. 10.Xanax 0.25 p.o. t.i.d. p.r.n. ALLERGIES: To VISTARIL AND PENICILLIN. PHYSICAL EXAMINATION: VITAL SIGNS: Temperature 97.5, pulse 72, respiration 16, blood pressure 167/96, pulse ox 99 percent on 2 L. GENERAL APPEARANCE: Well built, BMI 30.4. Lying in bed, awake. EYES: Pupils equal. Conjunctivae normal. HEENT: External appearance of nose and ears normal. Oral cavity normal. NECK: JVD not raised. Mass not palpable. RESPIRATORY: Effort normal. LUNGS: Slightly decreased breath sounds. CARDIOVASCULAR: 1st and 2nd sounds normal. No edema. ABDOMEN: Soft, nontender. Liver and spleen not palpable. LYMPHATICS: No lymph nodes palpable in the neck and axilla. PSYCHIATRY: Alert and oriented x3. Mood and affect normal. NEUROLOGICAL: Pupils equal. Cranial nerves grossly intact. Power and sensation grossly intact. INVESTIGATIONS: Blood work from October 29, 2018 shows a white count of 6.2, hemoglobin 14.8, potassium 4.4. BUN and creatinine is normal. ASSESSMENT: 1. Spondylolisthesis L3-L5 with severe spinal stenosis, degenerative joint disease, bilateral lower extremity with some weakness followed by surgical intervention. More details in Dr. Kelly's operative note. 2. Gastroesophageal reflux disease. 3. Primary osteoarthritis. 4. Benign prostatic hypertrophy. 5. Anxiety, not otherwise specified. PLAN: Home medications are resumed. The patient's blood pressure is running a bit on the higher side. The patient has no prior history of hypertension. Some blood pressure also low readings. We will decide tomorrow if the patient needs to be put on any antihypertensive. Care was discussed with the patient. Thank you Dr. Kelly. Copy to Dr. Rasmussen. The patient also has Venodyne boots for DVT prophylaxis. MMODL / IJN: [id number] /
[2018-11-07] MEDS: NICOTINE 21MG/24HR PATCH TRANSDERM SCH ×2 (02:15→20:44)
[2018-11-07] MEDS: ceFAZolin IN SWFI 2 GM/20 ML SYRINGE IVP SCH (02:15)
[2018-11-07] MEDS: HYDROcodone/APAP 5-325MG 1 EACH TAB PO PRN ×4 (02:15→17:40)
[2018-11-07] MEDS ORDERED: HYDROmorphone 1 MG/ML 1 ML SYRINGE ONE (03:57)
[2018-11-07] MEDS: CYANOCOBALAMIN 500 MCG TAB PO SCH (07:32)
[2018-11-07] MEDS: MULTIVITAMINS, THERA 1 EACH TAB PO SCH (07:32)
[2018-11-07] MEDS: METOPROLOL TARTRATE 50 MG TAB PO SCH ×2 (07:32→20:44)
[2018-11-07] MEDS: CHOLECALCIFEROL 400 UNIT TAB PO SCH (07:33)
[2018-11-07] MEDS: ALPRAZolam 0.25 MG TAB PO PRN (07:35)
[2018-11-07] MEDS: SODIUM CHLORIDE 0.9% 1,000 ML IV SCH ×2 (07:57→13:45)
[2018-11-07 08:07] LABS: Basophils % (A) 0 %; Eosinophils % (A) 0 %; HCT 41.1 % (39.0-53.0); HGB 13.9 gm/dL (13.0-17.5); Lymphocytes # (A) 1.3 k/uL (1.0-4.8); Lymphocytes % (A) 11 %; MCH 32.5 pg (25.0-35.0); MCHC 33.8 g/dL (31.0-37.0); MCV 96.1 fL (80.0-100.0); Mean Platelet Volume 6.5; Monocytes # (A) 0.7 k/uL (0-1.0); Monocytes % (A) 6 %; Neutrophils # (A) 9.6 k/uL (1.3-7.7); Neutrophils % (A) 82 %; Platelet Count 248 k/uL (150-450); RBC 4.28 m/uL (4.30-5.90); WBC 11.7 k/uL (3.8-10.6)
--- NOTE | 2018-11-07 08:30 | P.PN ---
Progress Note - Text Progress Note Date: 11/07/18 Postoperative day #1 Patient is seen and examined today at bedside. The patient has some pain around the surgical site as expected. Pain is being controlled with medication. He is having some generalized soreness at his bilateral hips and legs which is to be expected. He has been able to sit up at the side of the bed and is tolerating some of his regular diet. Physical Exam Afebrile with stable vital signs Abdomen is soft nontender. Chest has good excursion deep and space expiration The incision site is clean dry and intact. No erythema there is no purulence. Extremities have not had neurologic change from prior to surgery. Calves and thighs were soft nontender without evidence of DVT. Assessment/Plan Postoperative day #1 status post minimally invasive decompression and fusion L34 L4 5 for his spondylolisthesis with spinal stenosis and lower extremity radiculopathy Patient is progressing as expected from the surgery. He is making some good progress thus far and his pain is well-controlled. We will continue to increase the patient's mobilization with therapy. We will have him get up out of bed today with therapy. He is hopeful that he will be able to mobilize further and potentially go home tomorrow. We will continue pain control with oral or IV medications. We'll continue to follow patient closely.
[2018-11-07 08:32] LABS: Anion Gap 2 mmol/L; Blood Urea Nitrogen 14 mg/dL (9-20); Calcium 8.5 mg/dL (8.4-10.2); Carbon Dioxide 27 mmol/L (22-30); Chloride 104 mmol/L (98-107); Glucose 132 mg/dL (74-99); Potassium 3.7 mmol/L (3.5-5.1); Sodium 133 mmol/L (137-145)
[2018-11-07] MEDS: HYDROmorphone 1 MG/ML 1 ML SYRINGE IVP PRN ×3 (08:40→20:44)
[2018-11-07] MEDS ORDERED: NON-FORMULARY DRUG (Vitamin B Complex [Vitamin B Complex] 1 CAP) PO SCH (09:00)
[2018-11-07] MEDS ORDERED: NON-FORMULARY DRUG (Omega-3 Fatty Acids/Fish Oil [Fish Oil 1,000 Mg Softgel] 1 CAP) PO SCH (09:00)
[2018-11-07] MEDS: TAMSULOSIN 0.4 MG CAP.ER.24H PO SCH (12:48)
--- NOTE | 2018-11-07 22:51 | PN ---
PROGRESS NOTE DATE OF SERVICE: 11/07/2018 PRESENTING COMPLAINT: Lumbar surgery. INTERVAL HISTORY: Patient is status post lumbar surgery. Did sit up in a chair. Oakes catheter was discontinued. When I saw this patient, he had not urinated but did tolerate a small breakfast. Pain is still present. Some pain in the lower extremities. REVIEW OF SYSTEMS: Done for constitutional, cardiovascular, GI, pulmonary; relevant findings as above. CURRENT MEDICATIONS: Reviewed. They include pain medications, IV fluids. PHYSICAL EXAMINATION: VITAL SIGNS: Temperature 98.4, pulse 72, respiration 16, blood pressure 130/83, pulse ox 99% on 2 L. GENERAL APPEARANCE: Sitting up in a chair, tired-appearing. EYES: Pupils equal. Conjunctivae normal. NECK: JVD not raised. Mass not palpable. RESPIRATORY: Effort normal. LUNGS: Slightly decreased breath sounds. CARDIOVASCULAR: First and second sounds normal. No edema. ABDOMEN: Soft, nontender. Liver and spleen not palpable. PSYCHIATRY: Alert and oriented x3. Mood and affect normal. Oakes catheter has been discontinued. INVESTIGATIONS: White count 11.7, hemoglobin 13.9, potassium 3.7. ASSESSMENT: 1. Lumbar surgery, status post. 2. Gastroesophageal reflux disease. 3. Primary osteoarthritis. 4. Benign prostatic hypertrophy. 5. Anxiety not otherwise specified. PLAN: Continue current medication and treatment plan. Care was discussed with the patient. Will discontinue the IV fluids later today. MMODL / IJN: [id number] /
[2018-11-08] MEDS: HYDROcodone/APAP 5-325MG 1 EACH TAB PO PRN ×2 (00:11→05:58)
[2018-11-08 07:08] VITALS: PULSE 100; TEMP 100
[2018-11-08] MEDS: METOPROLOL TARTRATE 50 MG TAB PO SCH (07:41)
[2018-11-08] MEDS: CYANOCOBALAMIN 500 MCG TAB PO SCH (07:41)
[2018-11-08] MEDS: CHOLECALCIFEROL 400 UNIT TAB PO SCH (07:42)
--- NOTE | 2018-11-08 08:54 | P.DS ---
Providers Date of admission: 11/06/18 07:34 Expected date of discharge: 11/08/18 Attending physician: Jayda Kelly Consults: 11/06/18 14:25 Consult Physician Routine Consulting Provider: Tomas Guido Consult Reason/Comments: Medical management Do you want consulting provider notified?: Yes Primary care physician: Gray Rasmussen - Discharge Diagnosis(es) (1) Spondylolisthesis at L3-L4 level Current Visit: Yes Status: Acute (2) Lumbar spinal stenosis Current Visit: Yes Status: Acute (3) Lumbar back pain with radiculopathy affecting lower extremity Current Visit: Yes Status: Acute (4) Lumbar degenerative disc disease Current Visit: Yes Status: Acute (5) Lower extremity weakness Current Visit: Yes Status: Acute (6) Spondylolisthesis at L4-L5 level Current Visit: Yes Status: Acute Hospital Course: This is a pleasant 62-year-old male who presented with L3-4 and L4-5 spondylolisthesis and severe spinal canal stenosis, lumbar degenerative disc disease, low back pain, lower extremity radiculopathy, and lower extremity weakness who and failed outpatient conservative therapy. He was admitted for an L3-4 and L4-5 minimally invasive posterior lateral decompression and fusion with transforaminal lumbar interbody fusion. The patient tolerated the procedure well and did well postoperatively. His leg pain has significantly improved over the past 2 days postoperatively. His back pain has been controlled with oral medications. He's been able to ambulate to the restroom. He's had some difficulty with constipation but has had a bowel movement during his admission. He feels he is ready for discharge today. Condition on day of discharge stable. Patient will be discharged home. Patient was cleared preoperatively for surger y by Dr. Rasmussen. Patient currently denies any nausea, vomiting, fever, or chills. Patient is eating and voiding freely without difficulty. Patient may shower Tegaderm dressing intact. Patient may remove Tegaderm dressing in 3 days and shower without a dressing at that time. Patient should keep Steri-Strips intact and allow them to fall off naturally. Patient should refrain from driving until at least after their first follow-up appointment in the office. Patient should avoid excessive bending, lifting, and twisting; no lifting greater than 10 pounds. MAPS has been reviewed today, 11/08/2018, with an Overall Overdose Risk Score of 270. An "Opiod Start Talking" Forn has been signed by the patient and myself in place in the patient's chart. A prescription has been written for [place] 5 mg/325 mg 1-2 tabs every 4 hours as needed for pain, dispensed #84. A prescription was also written for a rolling walker to aid in ambulation discharge. Physical Exam on day of discharge: Patient is awake, alert, and oriented 3 Vital signs stable Good chest excursion with deep inspiration and expiration Abdomen soft nontender No signs or symptoms of DVT; no calf pain Extensor hallucis longus, plantarflexion, and dorsiflexion positive sustained bilateral lower extremities Dressing has been removed during physical examination with Tegaderm and nonstick Telfa reapplied Incision is clean, dry, and intact; no erythema, purulence, or signs of infection No significant pain with palpation over the surgical sites Procedures: L3-4 and L4-5 minimally invasive posterior lateral decompression and fusion with transforaminal lumbar interbody fusion Patient Condition at Discharge: Stable Plan - Discharge Summary Discharge Rx Participant: Yes New Discharge Prescriptions: New Hydrocodone/Acetaminophen [[place] 5-325] 1 - 2 each PO Q4HR PRN #84 tab PRN Reason: Pain No Action Multivitamins, Thera [Multivitamin (formulary)] 1 tab PO DAILY Cyanocobalamin (Vitamin B-12) [Vitamin B12] 2,500 mcg PO DAILY Cholecalciferol [Vitamin D3] 400 unit PO DAILY Hydrocodone/Acetaminophen [[place] 5-325] 0.5 - 1 tab PO BID PRN PRN Reason: Pain ALPRAZolam [Xanax] 0.25 mg PO TID PRN PRN Reason: Anxiety Tamsulosin [Flomax] 0.8 mg PO DAILY@1230 [place]-3 Fatty Acids/Fish Oil [Fish Oil 1,000 mg Softgel] 1 cap PO DAILY Vitamin B Complex 1 cap PO DAILY Ibuprofen 200 mg PO BID Ranitidine HCl [Zantac] 150 mg PO BID PRN PRN Reason: Heartburn Discharge Medication List ALPRAZolam [Xanax] 0.25 mg PO TID PRN 09/06/17 [History] Cholecalciferol [Vitamin D3] 400 unit PO DAILY 09/06/17 [History] Cyanocobalamin (Vitamin B-12) [Vitamin B12] 2,500 mcg PO DAILY 09/06/17 [History] Hydrocodone/Acetaminophen [[place] 5-325] 0.5 - 1 tab PO BID PRN 09/06/17 [History] Ibuprofen 200 mg PO BID 09/06/17 [History] Multivitamins, Thera [Multivitamin (formulary)] 1 tab PO DAILY 09/06/17 [History] [place]-3 Fatty Acids/Fish Oil [Fish Oil 1,000 mg Softgel] 1 cap PO DAILY 09/06/17 [History] Ranitidine HCl [Zantac] 150 mg PO BID PRN 09/06/17 [History] Tamsulosin [Flomax] 0.8 mg PO DAILY@1230 09/06/17 [History] Vitamin B Complex 1 cap PO DAILY 09/06/17 [History] Hydrocodone/Acetaminophen [[place] 5-325] 1 - 2 each PO Q4HR PRN #84 tab 11/08/18 [Rx] Follow up Appointment(s)/Referral(s): Janusz Rogers, SHAWN [PHYSICIAN HUMAN SERVICE SPECIALIST] - 2 Weeks (Patient may follow-up with Janusz Rogers PA-C or Dr. Remi Kelly at [facility] in 2-3 weeks following discharge. ) Activity/Diet/Wound Care/Special Instructions: 1. Patient may shower with Tegaderm dressing intact. 2. Patient may remove Tegaderm dressing in 3 days and shower without a dressing at that time. 3. Patient should keep Steri-Strips intact and allow them to fall off naturally. 4. Patient should refrain from driving until at least after their first follow- up appointment in the office. 5. Patient should avoid excessive bending, twisting, and lifting; no lifting greater than 10 pounds 6. Take medications as prescribed 7. May use rolling walker to aid in ambulation as needed 8. Do not soak in tub Discharge Disposition: HOME SELF-CARE
[2018-11-08] MEDS: MULTIVITAMINS, THERA 1 EACH TAB PO SCH (11:59)
[2018-11-08] MEDS: TAMSULOSIN 0.4 MG CAP.ER.24H PO SCH (11:59)
[2018-11-08 14:00] VITALS: BP 140/90
--- NOTE | 2018-11-09 23:19 | PN ---
PROGRESS NOTE DATE OF SERVICE: 11/09/2018. PRESENTING COMPLAINT: Lumbar surgery. INTERVAL HISTORY: Patient is status post lumbar surgery. She was seen by me yesterday. Doing much better, up and about. Did urinate. Was started on antihypertensive. Blood pressure started to come down. The patient's son is at the bedside. REVIEW OF SYSTEMS: Done for constitutional, cardiovascular, GI, pulmonary; relevant findings as above. CURRENT MEDICATIONS: Reviewed, that include Lopressor 50 mg b.i.d. PHYSICAL EXAMINATION: Pulse 100, temperature 100, respirations 16, blood pressure 140/90, pulse ox 95% on room air. GENERAL APPEARANCE: Lying in bed, comfortable. EYES:Pupils equal. Conjunctivae normal. NECK: JVD not responsible. Respiratory effort normal. LUNGS: Slightly decreased breath sounds. CARDIOVASCULAR: 1st and 2nd heart sounds. No edema. ABDOMEN: Soft, nontender. Liver and spleen not palpable. PSYCHIATRY: Alert and oriented x3. Mood and affect normal. INVESTIGATIONS: No blood work from today. ASSESSMENT: 1. Lumbar surgery. 2. Primary osteoarthritis. 3. Benign prostatic hypertrophy. 4. Gastroesophageal reflux disease. 5. Primary osteoarthritis. 6. Benign prostatic hypertrophy. 7. Anxiety, not otherwise specified. 8. Essential hypertension, new diagnosis. PLAN: Care was discussed at length with the patient and son at the bedside. The patient to take his daily blood pressure and he was educated how to take his blood pressure. They will buy a blood pressure cuff on the way back home. The patient is to take his blood pressure readings down to his family doctor. Prescription was written out for the same. Several questions were answered. Also advised about low-salt diet. Thank you Dr. Kelly. MMODL / IJN: [id number] /
== END 2018-11-08 15:12 | disposition home or self-care (01) | DRG 455 ==
LOC: 2ORMAIN 07:34 → 4SSUR 14:26
PROVIDERS: ADMIT Orthopaedic Surgery Orthopaedic Surgery of the Spine; ATTEND Orthopaedic Surgery Orthopaedic Surgery of the Spine
PROC: 0SG1071 Fusion of 2 or more Lumbar Vertebral Joints with Autologous Tissue Substitute, Posterior Approach, Posterior Column, Open Approach (ICD-10-PCS; 2018-11-06)
PROC: 0ST20ZZ Resection of Lumbar Vertebral Disc, Open Approach (ICD-10-PCS; 2018-11-06)
PROC: 30233N0 Transfusion of Autologous Red Blood Cells into Peripheral Vein, Percutaneous Approach (ICD-10-PCS; 2018-11-06)
PROC: 0SG10AJ Fusion of 2 or more Lumbar Vertebral Joints with Interbody Fusion Device, Posterior Approach, Anterior Column, Open Approach (ICD-10-PCS; principal; 2018-11-06 09:00)
DX: M48.061 Spinal stenosis, lumbar region without neurogenic claudication (principal); M51.16 Intervertebral disc disorders with radiculopathy, lumbar region; M43.16 Spondylolisthesis, lumbar region; M47.896 Other spondylosis, lumbar region; N40.0 Benign prostatic hyperplasia without lower urinary tract symptoms; K21.9 Gastro-esophageal reflux disease without esophagitis; F41.9 Anxiety disorder, unspecified; L30.9 Dermatitis, unspecified; M16.12 Unilateral primary osteoarthritis, left hip; I10 Essential (primary) hypertension; K59.00 Constipation, unspecified; F17.210 Nicotine dependence, cigarettes, uncomplicated; Z79.899 Other long term (current) drug therapy; Z98.1 Arthrodesis status; Z96.651 Presence of right artificial knee joint; Z88.0 Allergy status to penicillin; Z91.09 Other allergy status, other than to drugs and biological substances; Z82.49 Family history of ischemic heart disease and other diseases of the circulatory system
CPT/HCPCS: 72100; 80048; 85025; 86850; 86891; 86900; 86901